=== PATIENT | female | born 1945 | race Two or more races ===

== ENCOUNTER → 2017-04-05 | Outpatient (CLI) | payer OTHER ==
[~2017-04-05] MED LIST: ALTACE10 MG PO; DEXILANT60 MG PO; FLOVENT13 G1 IH; LEVOXYL50 MCG PO; LEVSIN0.125 MG PO; MICARDIS20 MG PO; PERCOCET 5/3251 TAB PO; PLAVIX75 MG PO; PREVACID30 MG PO; SIMBRINZA 1%-0.28 ML OP; SINGULAIR10 MG PO; VENTOLIN HFA18 GM IH; VERAPAMIL ER180 MG PO
== END | disposition home or self-care (01) ==
LOC: MAMO-SONO 08:42
DX: Z12.31 Encounter for screening mammogram for malignant neoplasm of breast (principal); Z87.898 Personal history of other specified conditions; N62 Hypertrophy of breast

== ENCOUNTER 2017-08-10 09:54 | Outpatient (CLI) | payer OTHER | END 2017-08-10 10:04 | disposition home or self-care (01) | LOC: TOM 09:54 | DX: I10 Essential (primary) hypertension (principal); R41.2 Retrograde amnesia ==

== ENCOUNTER 2017-11-29 09:14 | Outpatient (CLI) | payer OTHER | END 2017-11-29 14:34 | disposition home or self-care (01) | LOC: TOM 09:14 | DX: J45.30 Mild persistent asthma, uncomplicated (principal); J30.1 Allergic rhinitis due to pollen; R91.1 Solitary pulmonary nodule; R04.2 Hemoptysis ==

== ENCOUNTER 2018-04-27 12:18 | Outpatient (CLI) | payer OTHER | END 2018-04-27 14:38 | disposition home or self-care (01) | LOC: MRI 12:18 | DX: M25.572 Pain in left ankle and joints of left foot (principal) | CPT/HCPCS: 73718 ==

== ENCOUNTER → 2019-02-26 | Outpatient (CLI) | payer OTHER | END | disposition home or self-care (01) | LOC: RAD 08:56 | DX: M79.641 Pain in right hand (principal); J44.9 Chronic obstructive pulmonary disease, unspecified; Z01.811 Encounter for preprocedural respiratory examination ==

== ENCOUNTER 2019-03-27 05:25 | Day surgery (SDC) | payer OTHER ==
[~2019-03-27 05:25] MED LIST changes: +CARAFATE1 GM PO; +DILTIAZEM ER120 M2 PO; +INTESTINEX680 M1 PO; +POLY119PG PO; +VITAMIN D310000 UNIT PO; +ZESTRIL5 MG PO
== END 2019-03-27 13:05 | disposition home or self-care (01) ==
LOC: CIR.AMB 05:25 → ADM 08:15 → CIR.AMB 13:05
DX: M19.041 Primary osteoarthritis, right hand (principal)

== ENCOUNTER → 2019-04-16 | Outpatient (CLI) | payer OTHER | END | disposition home or self-care (01) | LOC: RAD 09:43 | DX: M79.641 Pain in right hand (principal) ==

== ENCOUNTER 2019-06-25 11:47 | Outpatient (CLI) | payer OTHER | END 2019-06-25 13:07 | disposition home or self-care (01) | LOC: RAD 11:47 | DX: M19.041 Primary osteoarthritis, right hand (principal) ==

== ENCOUNTER 2021-04-09 08:34 | Outpatient (CLI) | payer OTHER | END 2021-04-09 08:48 | disposition home or self-care (01) | LOC: TOM 08:34 | PROVIDERS: ATTEND Internal Medicine Cardiovascular Disease | DX: Q33.0 Congenital cystic lung (principal); R92.1 Mammographic calcification found on diagnostic imaging of breast; N64.59 Other signs and symptoms in breast; Z12.31 Encounter for screening mammogram for malignant neoplasm of breast ==

== ENCOUNTER 2021-07-09 10:11 | Outpatient (CLI) | payer OTHER | END 2021-07-09 10:23 | disposition home or self-care (01) | LOC: RAD 10:11 | PROVIDERS: ATTEND Orthopaedic Surgery | DX: M25.561 Pain in right knee (principal); M25.562 Pain in left knee ==

== ENCOUNTER 2021-07-29 11:59 | Outpatient (CLI) | payer OTHER | END 2021-07-29 12:01 | disposition home or self-care (01) | LOC: RAD 11:59 | DX: Z01.810 Encounter for preprocedural cardiovascular examination (principal); R07.9 Chest pain, unspecified ==

== ENCOUNTER 2023-05-13 09:37 | Outpatient (CLI) | payer OTHER | END 2023-05-13 09:45 | disposition home or self-care (01) | LOC: TOM 09:37 | PROVIDERS: ATTEND Internal Medicine Cardiovascular Disease | DX: J44.9 Chronic obstructive pulmonary disease, unspecified (principal); Z88.2 Allergy status to sulfonamides ==

== ENCOUNTER 2023-06-21 07:10 | Outpatient (CLI) | payer OTHER | END 2023-06-21 07:11 | disposition home or self-care (01) | LOC: NUCLEAR 07:10 | PROVIDERS: ATTEND Internal Medicine | DX: I20.9 Angina pectoris, unspecified (principal) | CPT/HCPCS: 78452; 93017; A9500; J0153 ==

== ENCOUNTER 2024-03-12 08:11 | Outpatient (CLI) | payer OTHER | END 2024-03-12 08:19 | disposition home or self-care (01) | LOC: SONOGRAMA 08:11 | PROVIDERS: ATTEND General Practice | DX: E04.2 Nontoxic multinodular goiter (principal) ==

== ENCOUNTER 2024-03-12 08:49 | Outpatient (CLI) | payer OTHER | END 2024-03-12 08:50 | disposition home or self-care (01) | LOC: NUCLEAR 08:49 | PROVIDERS: ATTEND Internal Medicine Endocrinology, Diabetes & Metabolism | DX: M85.80 Other specified disorders of bone density and structure, unspecified site (principal); M81.0 Age-related osteoporosis without current pathological fracture ==

== ENCOUNTER 2024-03-23 11:12 | Outpatient (CLI) | payer OTHER | END 2024-03-23 11:23 | disposition home or self-care (01) | LOC: TOM 11:12 | PROVIDERS: ATTEND Internal Medicine Cardiovascular Disease | DX: J44.9 Chronic obstructive pulmonary disease, unspecified (principal) ==

== ENCOUNTER 2024-06-21 09:51 | Outpatient (CLI) | payer OTHER | END 2024-06-21 09:55 | disposition home or self-care (01) | LOC: RAD 09:51 | PROVIDERS: ATTEND Orthopaedic Surgery Hand Surgery | DX: M19.012 Primary osteoarthritis, left shoulder (principal); M19.042 Primary osteoarthritis, left hand ==

== ENCOUNTER 2024-07-24 05:00 | Day surgery (SDC) | payer OTHER ==
[2024-07-17 08:30] VITALS: BP 162/75
[2024-07-17 08:46] LABS: URINE APPEARANCE Clear; URINE BILIRRUBIN Negative (NEGATIVE); URINE BLOOD Negative; URINE COLOR Yellow; URINE GLUCOSE Negative (NEGATIVE); URINE KETONE Negative (NEGATIVE); URINE LEUKOCYTE Negative; URINE NITRATE Negative; URINE PROTEIN Negative (NEGATIVE); URINE UROBILINOGEN 0.2 E.U./dl
[2024-07-17 08:49] LABS: HEMATOCRIT 34.3 % (36.0-45.00); HEMOGLOBIN 10.8 g/dL (12.0-15.00); MEAN CELL VOLUME 71.9 fL (80.00-100.00); MEAN CORPUSCULAR HEMOGLOBIN 22.5 pg (27.00-32.0); MEAN CORPUSCULAR HGB CONC 31.4 g/dl (32.0-36.0); PLATELET COUNT 201 K/uL (150-450); RED BLOOD COUNT 4.77 M/uL (4.00-6.00); RED CELL DISTRIBUTION WIDTH 17.1 % (11.5-14.5)
[2024-07-17 08:50] LABS: URINE BACTERIA 105.2 uL (0.0-1933); URINE EPITHELIAL CELLS 12.6 uL (0.0-38.8); URINE RBC 2.3 uL (0.0-20.8); URINE WBC 2.8 uL (0.0-23.2)
[2024-07-17 09:01] LABS: URINE CAST 0.29 uL (0.0-1.40)
[2024-07-17 09:24] LABS: PARTIAL THROMBOPLASTIN TIME 29.6 SECONDS (22.0-34.0); PROTHROMBIN TIME 10.9 SECONDS (9.0-11.5)
[2024-07-17 09:33] LABS: BILIRUBIN TOTAL 0.48 mg/dL (0.3-1.2); CALCIUM 9.3 mg/dL (8.5-10.1); CREATININE SERUM 0.72 mg/dL (0.55-1.02); GFR 78.14; GLOBULINA 3.1 G/DL (2.4-3.5); POTASSIUM 4.23 mEq/L (3.5-5.1); TOTAL PROTEIN 7.1 gm/dL (6.4-8.2)
[~2024-07-24] VITALS: Ht 149.9 cm; Wt 58.5 kg
[~2024-07-24 05:00] MED LIST changes: +LINZESS145 MCG; +SIMBRINZA 1%-0.28 M1; +ZETIA10 MG; +[UNRECOGNIZED DRUG - OTHER]; +[UNRECOGNIZED DRUG - OTHER]
[2024-07-24] MEDS ORDERED: CLINDAMYCIN PHOSPHATE 150 MG/ML (900mg) ONE (06:56)
[2024-07-24] MEDS ORDERED: BUPIVACAINE HCL/MPF 0.5% 30ML VIAL ONE (07:09)
[2024-07-24] MEDS ORDERED: SUGAMMADEX SODIUM 200 MG/2 ML VIAL IV ONE (09:09)
== END 2024-07-24 11:20 | disposition home or self-care (01) ==
LOC: CIR.AMB 05:00
PROVIDERS: ATTEND Orthopaedic Surgery Hand Surgery
DX: M19.042 Primary osteoarthritis, left hand (principal); Z88.2 Allergy status to sulfonamides